=== PATIENT | male | born 1980 | race Caucasian/White ===

== ENCOUNTER 2017-12-18 17:23 | Emergency (ER) | payer BC ==
--- NOTE | 2017-12-18 17:44 | EDM.PDOC ---
ED HPI GENERAL MEDICAL PROBLEM - General Chief Complaint: Lower Extremity Injury/Pain Stated Complaint: PT RT LEG HURTING Time Seen by Provider: 12/18/17 17:44 Source of Information: Reports: Patient History Limitations: Reports: No Limitations - History of Present Illness INITIAL COMMENTS - FREE TEXT/NARRATIVE: HISTORY AND PHYSICAL: 37-year-old male presenting with right ankle pain and lying to his upper lower right leg History of Present Illness: []Patient fell [place] a deer stand 5 days ago injuring his right ankle which seems to be worsening As patient was driving to [place] and he felt something crawling on his right lower leg just below the knee and a wasp stung him in 2 spots. 2 days later patient had some erythema and edema to this area now leg is swollen hot and red Review of Systems: As per history of present illness and below otherwise all systems reviewed and negative. Past medical history: As per history of present illness and as reviewed below otherwise noncontributory. Surgical history: As per history of present illness and as reviewed below otherwise noncontributory. Social history: No reported history of drug or alcohol abuse. Family history: As per history of present illness and as reviewed below otherwise noncontributory. Physical exam: Alert and oriented answering questions appropriately in full sentences without any shortness of breath. HEENT: Atraumatic, normocehpalic, pupils reactive, negative for conjunctival pallor or scleral icterus, mucous membranes moist, throat clear, neck supple, nontender, trachea midline. Lungs: Clear to auscultation, breath sounds equal bilaterally, chest non tender. Heart: S1S2, regular, negative for clicks, rubs, or JVD. Abdomen: Soft, nondistended, nontender. Negative for masses or hepatossplenmegaly. Negative for costovertebral tenderness. Pelvis: Stable nontender. Genitourinary: Deferred. Rectal: Deferred Extremities: Edema is noted to the right ankle lateral malleolus. Pedal pulses are palpable. He did walk on his foot coming in. Edema is noted to the area on lower leg 5 cm below his knee.wasp sting areas X2. area with firmness and heat radiating. negative for cords or calf pain. Neurovascular unremarkable. Neuro: Awake, alert, oriented. Cranial nerves II through XII unremarkable. Cerebellum unremarkable. Motor and sensory unremarkable throughout. Exam nonfocal. Diagnostics: []xray right ankle Therapeutics: []Saline lock Solu-Medrol IV 1 L normal saline Benadryl zyrtec Impression: []Cellulitis Right ankle sprain Plan: []Discharge Hydrocodone/APAP 5/325 one 3 times a day when necessary pain #[address]ill [address] may not drive or work while taking this medication Elevate and ice your ankle on 20 minutes off 20 minutes Antibiotics for the cellulitis Follow-up 12/22/17 with permit care provider if you do not have one please call tomorrow to obtain appointment for follow-up of ER care at [facility] [address] [address] [place] [address] Return to the emergency room as instructed and discussed Definitive disposition and diagnosis as appropriate pending reevaluation and review of above. Onset: Sudden Duration: Day(s): (3), Getting Worse Location: Reports: Lower Extremity, Right Quality: Reports: Ache, Throbbing Severity: Moderate Improves with: Reports: None Worsens with: Reports: None Associated Symptoms: Reports: Rash right leg Pain Score (Numeric/FACES): 7 - Related Data Allergies Allergy/AdvReac Type Severity Reaction Status Date / Time No Known Allergies Allergy Verified 12/18/17 17:43 Home Meds: Home Meds Amoxicillin/Potassium Clav [Augmentin 875-125 Tablet] 1 each PO BID #20 tablet 12/18/17 [Rx] Review of Systems - Review of Systems Review Of Systems: ROS reveals no pertinent complaints other than HPI. ED EXAM, GENERAL - Physical Exam Exam: See Below (See dictation) Course - Vital Signs Last Recorded V/S: Last Vital Signs Temp 36.7 C 12/18/17 17:44 Pulse 84 12/18/17 17:44 Resp 18 12/18/17 17:44 BP 147/72 H 12/18/17 17:44 Pulse Ox 98 12/18/17 17:44 - Orders/Labs/Meds Orders: Active Orders 24 hr Category Date Time Status Ankle 2V Rt [CR] Stat Exams 12/18/17 17:48 Taken Sodium Chloride 0.9% [Saline Flush] Med 12/18/17 17:48 Active 10 ml FLUSH ASDIRECTED PRN Sodium Chloride 0.9% [Saline Flush] Med 12/18/17 17:48 Active 2.5 ml FLUSH ASDIRECTED PRN Saline Lock Insert [OM.PC] Stat Oth 12/18/17 17:48 Ordered Medication Orders Sodium Chloride (Saline Flush) 10 ml FLUSH ASDIRECTED PRN PRN Reason: Keep Vein Open Last Admin: 12/18/17 18:01 Dose: 10 ml Sodium Chloride (Saline Flush) 2.5 ml FLUSH ASDIRECTED PRN PRN Reason: Keep Vein Open Last Admin: 12/18/17 18:01 Dose: 2.5 ml Meds: Medications Generic Name Dose Route Start Last Admin Trade Name Freq PRN Reason Stop Dose Admin Sodium Chloride 10 ml 12/18/17 17:48 12/18/17 18:01 Saline Flush FLUSH 10 ml ASDIRECTED PRN Administration Keep Vein Open Sodium Chloride 2.5 ml 12/18/17 17:48 12/18/17 18:01 Saline Flush FLUSH 2.5 ml ASDIRECTED PRN Administration Keep Vein Open Discontinued Medications Generic Name Dose Route Start Last Admin Trade Name Freq PRN Reason Stop Dose Admin Cetirizine HCl 10 mg 12/18/17 18:04 12/18/17 18:09 Zyrtec PO 12/18/17 18:05 10 mg ONETIME ONE Administration Diphenhydramine HCl 25 mg 12/18/17 17:53 12/18/17 18:01 Benadryl IVPUSH 12/18/17 17:54 25 mg ONETIME ONE Administration Sodium Chloride 1,000 mls @ 999 mls/hr 12/18/17 17:48 12/18/17 18:00 Normal Saline IV 12/18/17 18:48 999 mls/hr .Bolus ONE Administration Methylprednisolone Sodium Succinate 125 mg 12/18/17 17:48 12/18/17 18:01 Solu-Medrol IVPUSH 12/18/17 17:49 125 mg ONETIME ONE Administration Departure - Departure Time of Disposition: 19:09 Disposition: Home, Self-Care 01 Condition: Good Clinical Impression: Cellulitis of right lower leg Right ankle sprain Qualifiers: Encounter type: initial encounter Involved ligament of ankle: unspecified ligament Qualified Code(s): S93.401A - Sprain of unspecified ligament of right ankle, initial encounter - Discharge Information *PRESCRIPTION DRUG MONITORING PROGRAM REVIEWED*: No *COPY OF PRESCRIPTION DRUG MONITORING REPORT IN PATIENT DWAINE: No Prescriptions: Amoxicillin/Potassium Clav [Augmentin 875-125 Tablet] 1 each PO BID #20 tablet Instructions: Ankle Sprain, Cellulitis, Adult, [id number] Referrals: PCP,None [Primary Care Provider] - Forms: ED Department Discharge Additional Instructions: The following information is given to patients seen in the emergency department who are being discharged to home. This information is to outline your options for follow-up care. We provide all patients seen in our emergency department with a follow-up referral. The need for follow-up, as well as the timing and circumstances, are variable depending upon the specifics of your emergency department visit. If you don't have a primary care physician on staff, we will provide you with a referral. We always advise you to contact your personal physician following an emergency department visit to inform them of the circumstance of the visit and for follow-up with them and/or the need for any referrals to a consulting specialist. The emergency department will also refer you to a specialist when appropriate. This referral assures that you have the opportunity for followup care with a specialist. All of these measure are taken in an effort to provide you with optimal care, which includes your followup. Under all circumstances we always encourage you to contact your private physician who remains a resource for coordinating your care. When calling for followup care, please make the office aware that this follow-up is from your recent emergency room visit. If for any reason you are refused follow-up, please contact the [facility] emergency department at and asked to speak to the emergency department charge nurse. Discharge Hydrocodone/APAP 5/325 one 3 times a day when necessary pain #6 no refill you may not drive or work while taking this medication Elevate and ice your ankle on 20 minutes off 20 minutes Antibiotics for the cellulitis Follow-up 12/22/17 with permit care provider if you do not have one please call tomorrow to obtain appointment for follow-up of ER care at [facility] [address] [place] [address] [place], [place] [id number] Return to the emergency room as instructed and discussed - My Orders Last 24 Hours: My Active Orders 12/18/17 17:48 Ankle 2V Rt [CR] Stat Sodium Chloride 0.9% [Saline Flush] 10 ml FLUSH ASDIRECTED PRN Sodium Chloride 0.9% [Saline Flush] 2.5 ml FLUSH ASDIRECTED PRN Saline Lock Insert [OM.PC] Stat - Assessment/Plan Last 24 Hours: My Active Orders 12/18/17 17:48 Ankle 2V Rt [CR] Stat Sodium Chloride 0.9% [Saline Flush] 10 ml FLUSH ASDIRECTED PRN Sodium Chloride 0.9% [Saline Flush] 2.5 ml FLUSH ASDIRECTED PRN Saline Lock Insert [OM.PC] Stat
[2017-12-18] MEDS ORDERED: Sodium Chloride 0.9% 1,000 ML IV ONE (17:48)
[2017-12-18] MEDS ORDERED: Sodium Chloride 0.9% 2.5 ML Syringe FLUSH PRN (17:48)
[2017-12-18] MEDS ORDERED: methylPREDNISolone Sodium Succinate 125 MG/2 ML SDV IVPUSH ONE (17:48)
[2017-12-18] MEDS ORDERED: Sodium Chloride 0.9% 10 ML Syringe FLUSH PRN (17:48)
[2017-12-18] MEDS ORDERED: diphenhydrAMINE 50 MG/ML SDV IVPUSH ONE (17:53)
[2017-12-18] MEDS ORDERED: Cetirizine 10 MG Tab PO ONE (18:04)
--- NOTE | 2017-12-19 09:59 | CR ---
EXAM DATE: 12/18/17 PATIENT'S AGE: 37 Patient: [facility] Facility: [place], [place] Site . Site : 1980 Study: XRay Extremity Right ankle [id number]/18/2017 6:30:59 PM Ordering Physician: Doctor Larkin Final Report: INDICATION: Pain. COMPARISON: None. TECHNIQUE: Two views of the right ankle. FINDINGS: The bones are anatomically aligned. There is no evidence of fracture, erosion or intrinsic bone lesion. The soft tissues appear normal. IMPRESSION: Negative right ankle. Dictated by Lyle Babb MD @ Dec 18 2017 6:43PM (Electronic Signature) Report Signed by Proxy. MADONNA
== END 2017-12-18 19:22 | disposition home or self-care (01) ==
LOC: MW.ED 17:23
DX: S93.401A Sprain of unspecified ligament of right ankle, initial encounter (principal); L03.115 Cellulitis of right lower limb; X58.XXXA Exposure to other specified factors, initial encounter
CPT/HCPCS: 73600; 96361; 96374; 96375; 99283; A9270; J1200; J2930; J7040

== ENCOUNTER 2024-05-08 18:35 | Emergency (ER) | payer BC ==
[2024-05-08] MEDS ORDERED: Sodium Chloride 0.9% 2.5 ML Syringe FLUSH PRN (19:46)
[2024-05-08] MEDS ORDERED: Sodium Chloride 0.9% 10 ML Syringe FLUSH PRN (19:46)
[2024-05-08] MEDS: Sodium Chloride 0.9% 1,000 ML IV ONE (20:21)
[2024-05-08] MEDS: diphenhydrAMINE 50 MG/ML SDV IVPUSH ONE (20:22)
[2024-05-08] MEDS: Ketorolac 30 MG/ML SDV IVPUSH ONE (20:23)
[2024-05-08] MEDS: Metoclopramide 10 MG/2 ML SDV IVPUSH ONE (20:23)
[2024-05-08 20:51] LABS: BASOPHILS ABSOLUTE AUTO 0.05 K/uL (0.00-0.20); BASOPHILS PERCENT AUTO 0.5 % (0.0-1.0); EOSINOPHILS ABSOLUTE AUTO 0.16 K/uL (0.00-0.45); EOSINOPHILS PERCENT AUTO 1.6 % (0.0-6.0); HEMATOCRIT 43.2 % (42.0-52.0); IMMATURE GRAN ABSOLUTE AUTO 0.07 K/uL (0.00-0.05); IMMATURE GRAN PERCENT AUTO 0.7 % (0.0-0.4); LYMPHOCYTES ABSOLUTE AUTO 2.21 K/uL (1.00-4.80); LYMPHOCYTES PERCENT AUTO 22.3 % (24.0-44.0); MEAN CORPUSCULAR HEMOGLOBIN 29.3 pg (28.0-32.0); MEAN CORPUSCULAR HGB CONC 34.7 g/dL (32.0-36.0); MEAN CORPUSCULAR VOLUME 84.4 fL (83.0-99.0); MEAN PLATELET VOLUME 10.2 fL (9.4-12.4); MONOCYTES ABSOLUTE AUTO 0.65 K/uL (0.00-0.80); MONOCYTES PERCENT AUTO 6.6 % (0.0-8.0); NEUTROPHILS ABSOLUTE AUTO 6.75 K/uL (1.80-7.70); NEUTROPHILS PERCENT AUTO 68.3 % (41.0-71.0); PLATELET COUNT,PLT 254 K/uL (150-400); RED BLOOD CELL COUNT 5.12 M/uL (4.52-5.90); WHITE BLOOD CELL COUNT,WBC 9.89 K/uL (3.9-11.3)
[2024-05-08 22:31] LABS: CALCIUM 9.5 mg/dL (8.5-10.1); CARBON DIOXIDE,CO2 27.6 mmol/L (21.0-32.0); CREATININE 1.1 mg/dL (0.8-1.3); EST CRCL DRUG DOSING (CG) 95.84 mL/min; POTASSIUM,K 4.2 mmol/L (3.5-5.1)
== END 2024-05-08 23:28 | disposition home or self-care (01) ==
LOC: MW.ED 18:35
DX: G43.C0 Periodic headache syndromes in child or adult, not intractable (principal); H60.332 Swimmer's ear, left ear; Z86.16 Personal history of COVID-19; Z79.899 Other long term (current) drug therapy
CPT/HCPCS: 36415; 70450; 80048; 85025; 87428; 96361; 96374; 96375; 99284; J1200; J1885; J2765; J7030; 99283